=== PATIENT | female | born 2000 ===

== ENCOUNTER 2018-01-20 23:43 | Inpatient (IN) | payer MEDICAID, OTHER ==
[2018-01-20 23:51] VITALS: BMI 21.2
--- NOTE | 2018-01-21 01:54 | ED PDOC ---
HPI: Psych/Substance Abuse Time Seen by Provider: 01/21/18 01:16 Chief Complaint (Nursing): Shortness Of Breath Chief Complaint (Provider): Anxiety History Per: Patient History/Exam Limitations: no limitations Current Symptoms Are (Timing): Still Present Suicide/Self Injury Attempted (Context): None Additional Complaint(s): 17 year old female presents to ED with complaints of anxiety and two panic attacks yesterday and has a past medical history of hypercholesterolemia and asthma. Patient describes her panic attacks as a sudden onset of dizziness, SOB , head spinning sensation, and "tingling" hands. Patient notes that she feels better currently and confirms that she has significant stress in her life recently. Patient admits to suicidal ideation, suicidal plan, and self- mutilation by means of cutting her wrists (last mutilation in November 2017) . Patient states she abuses drugs at parties but denies taking any drugs today. PCP: Non [facility] Past Medical History Reviewed: Historical Data, Nursing Documentation, Vital Signs Vital Signs: Last Vital Signs Temp 98.2 F 01/20/18 23:51 Pulse 81 01/20/18 23:51 Resp 16 01/20/18 23:51 BP 122/77 01/20/18 23:51 Pulse Ox 97 01/20/18 23:51 - Medical History PMH: Asthma, Hypercholesterolemia - Family History Family History: States: Unknown Family Hx - Living Arrangements Living Arrangements: With Family - Social History Alcohol: Social - Home Medications Home Medications: Ambulatory Orders Medication Instructions Recorded No Known Home Med 01/21/18 - Allergies Allergies/Adverse Reactions: Allergies Allergy/AdvReac Type Severity Reaction Status Date / Time No Known Allergies Allergy Verified 01/20/18 23:51 Review of Systems ROS Statement: Except As Marked, All Systems Reviewed And Found Negative Psych: Positive for: Anxiety, Suicidal ideation, Other ((+) panic attacks x2) Physical Exam - Reviewed Nursing Documentation Reviewed: Yes Vital Signs Reviewed: Yes - Physical Exam Appears: Positive for: Non-toxic, No Acute Distress Skin: Positive for: Normal Color, Warm, Dry Neck: Positive for: Normal Cardiovascular/Chest: Positive for: Regular Rate, Rhythm. Negative for: Murmur Respiratory: Negative for: Respiratory Distress Extremity: Positive for: Normal ROM. Negative for: Deformity Neurologic/Psych: Positive for: Alert, Oriented, Mood/Affect (withdrawn, depressed affect). Negative for: Motor/Sensory Deficits - Laboratory Results Result Diagrams: 01/21/18 02:11 01/21/18 02:11 - ECG O2 Sat by Pulse Oximetry: 97 (RA) Pulse Ox Interpretation: Normal Medical Decision Making Medical Decision Makin Initial impression: 17 year old female with no significant past medical history presenting with anxiety and suicidal ideation Initial plan: Patient will need medical clearance for a crisis evaluation. Patient to be placed on a 1:1. * Acetaminophen level * EtOH serum * Labs * UDrug screen * Salicylate level * Crisis eval * 1:1 OBS * UA 0245 Labs reviewed: no clinically significant abnormalities Patient has been medically cleared and subsequently evaluated by crisis. Patient will be admitted for adjustment disorder with depressed mood as per Dr. Glover (INPATIENT PSYCH). Scribe Attestation: Documented by Madhuri Perez acting as a scribe for Janes Elizalde MD. Scribe Attestation: All medical record entries made by the Scribe were at my direction and personally dictated by me. I have reviewed the chart and agree that the record accurately reflects my personal performance of the history, physical exam, medical decision making, and the department course for this patient. I have also personally directed, reviewed, and agree with the discharge instructions and disposition. Disposition - Clinical Impression Clinical Impression: Adjustment disorder with depressed mood - Patient ED Disposition Is Patient to be Admitted: Yes - Disposition Disposition Time: 02:35 Condition: FAIR - Pt Status Changed To: Hospital Disposition Of: Inpatient (INPATIENT PSYCH) - Admit Certification Admit to Inpatient:: After my assessment, the patient will require hospitalization for at least two midnights. This is because of the severity of symptoms shown, intensity of services needed, and/or the medical risk in this patient being treated as an outpatient.
[2018-01-21 02:21] LABS: BASO # 0.1 K/uL (0.0-0.2); BASO % 0.8 % (0.0-2.0); EOS # 0.4 K/uL (0.0-0.7); EOS % 4.9 % (0.0-4.0); HEMOGLOBIN 13.4 g/dL (12.0-16.0); LYMPH # 1.8 K/uL (1.0-4.3); LYMPH % 22.4 % (20.0-40.0); MEAN CELL VOLUME 88.5 fl (81.0-99.0); MEAN CORPUSCULAR HEMOGLOBIN 29.2 pg (27.0-31.0); MEAN PLATELET VOLUME 8.7 fl (7.2-11.7); MONO # 0.6 K/uL (0.0-0.8); NEUT % 63.9 % (50.0-75.0); NRBC % 0.1 % (0.0-0.0); RBC 4.59 Mil/uL (3.80-5.20); RED CELL DISTRIBUTION WIDTH 14.5 % (11.5-14.5); WHITE BLOOD COUNT 7.9 K/uL (4.8-10.8)
[2018-01-21 02:28] LABS: BLOOD UREA NITROGEN 11 mg/dl (7-17); CALCIUM 9.4 mg/dL (8.4-10.2); GFR AFRICAN-AMERICAN > 60; GFR NON-AFRICAN AMERICAN > 60
[2018-01-21 02:32] LABS: ACETAMINOPHEN < 10.0 ug/ml (10.0-30.0); SALICYLATE < 1.0 mg/dl
[2018-01-21 03:35] LABS: SQUAMOUS EPITHIAL < 1 /hpf (0-5); URINE BILIRUBIN NEGATIVE (NEGATIVE); URINE BLOOD NEGATIVE (NEGATIVE); URINE CLARITY CLEAR (Clear); URINE COLOR STRAW (YELLOW); URINE GLUCOSE (UA) NEG (Normal); URINE LEUKOCYTE ESTERASE NEG Leu/uL (Negative); URINE PROTEIN NEGATIVE (NEGATIVE); URINE UROBILINOGEN 0.2-1.0 mg/dL (0.2-1.0)
[2018-01-21 03:55] LABS: BARBITURATES, UR NEGATIVE (NEGATIVE); BENZODIAZEPINES, UR NEGATIVE (NEGATIVE); OPIATES, UR NEGATIVE (NEGATIVE); PHENCYCLIDINE, UR NEGATIVE (NEGATIVE)
[2018-01-21] MEDS ORDERED: Alum-Mag Hydrox-Simethicone Susp (30 mL) PO PRN (05:22)
[2018-01-21] MEDS ORDERED: DiphenhydrAMINE 50 mg/ml Inj IM PRN (05:22)
[2018-01-21] MEDS ORDERED: Magnesium Hydroxide Susp 30 ml UD PO PRN (05:22)
[2018-01-21 06:03] VITALS: O2SAT 97
[2018-01-21 06:06] LABS: T4 7.36 ug/dl (5.5-11.0)
--- NOTE | 2018-01-21 06:25 | PCM.BM ---
<RobertMelissa Chaney - Last Filed: 01/21/18 06:22> Treatment Plan Problems - Problems identified on initial assessmt Anxiety Date Initiated: 01/21/18 Time Initiated: 06:23 Assessment reference: NA Status: Active Panic Attacks Date Initiated: 01/21/18 Time Initiated: 06:24 Assessment reference: NA Status: Active Treatment assets and liabiliti Patient Assests: adapts well, cooperative, physically healthy, good support system, negotiates basic needs, cognitively intact Patient Liabilities: financial problems - Milieu Protocol Maintain good personal hygiene: daily Encourage regular showers, daily Remind patient to perform daily oral care, daily Assist patient to perform ADL's Conduct patient checks and document Observation sheet: Q15 minutes Maintain personal safety: every shift Educate patient to report safety concerns to staff, every shift Monitor environment for contraband/sharps Medication safety: Monitor for expected outcome, potential side effects: every shift, Assess barriers to learning: every shift, Assess readiness for medication education: every shift <Lizzie Glover - Last Filed: 01/25/18 13:00> - Diagnosis (1) Depressed Status: Acute Interventions: psychotherapy, pharmacotherapy 01/25/18 13:00 <Fadia Elliott - Last Filed: 01/25/18 13:16> Treatment assets and liabiliti Patient Assests: adapts well, cooperative, motivated, ADL independent, physically healthy, good support system, negotiates basic needs, cognitively intact Family Contact Family involvement: Family/SO is involved Family contact: Patient agrees to contact, Family has been contacted by patient , Telephone contact initiated by staff Family contact name: Petr)([phone]) Family contacted how many times per week?: 2 - Goals for Treatment Patient goals for treatment: Patient to continue stabilization on 3NP through medication management and group/supportive therapy to address sxs of depression/ anxiety and eliminate SI. Patient to be encouraged to attend groups regularly to promote self-awareness, compliance and improve insight, coping skills and self-esteem. Patient to be provided with referral for appropriate level of aftercare to reduce risk of future hospitalizations and ensure safety in the community. Discharge/Continuing Care - Education Needs Education Needs: Family Medication, Family Coping Skills, Family Community resources, Family Aftercare Safety Plan, Patient Medication, Patient Coping Skills, Patient Community resources, Patient Aftercare Safety Plan - Discharge Discharge Criteria: Tolerates medication w/o severe side effects, Free of Suicidal thoughts, Normal sleep pattern, Ability to care for self, Reduction of target symptoms Discharge to:: Home, With Family, Other (Outpatient Mental Health ) - Treatment Team Participation Patient/Family/SO Statement: 01/25/18 13:15 Patient attended tx team on the morning of 01/24 and was able to engage in discussion regarding progress on 3NP and tx goals. Pt. reported having received significant support from family and friends since admission and feeling loved and supported by the people visiting on unit. Pt. reported improvement in sxs of depression and anxiety since admission. Pt. denied SI/HI or urges to self- injure. Pt. reported poor sleep from Wednesday to Wednesday but denied nightmares or flashbacks. Pt reported improvement in appetite. Medication changes discussed at length (increase in antidepressant). Pt. agreeable. Discussed with Family/SO: Yes Was Patient/Family/SO present at Treatment Team Meeting: Yes
[2018-01-21] MEDS ORDERED: Albuterol HFA 90 mcg/actuation (8 g) INH PRN (09:24)
--- NOTE | 2018-01-21 12:19 | CP.PCM.CON ---
History of Present Illness - History of Present Illness History of Present Illness: CC: Depression This is a 17 yo female with pmh of asthma and familial hypercholesterolemia presenting to inpatient [facility] with panic attach, suicidal ideation and suicidal plan. Also has history of self mutiliation/wrist cutting. Patient denies any current medical issues. Only current medication she takes at home is PRN Ventolin inhaler. Denies cp, sob, weakness, recent illness, f/v/n/v/d. Review of Systems - Review of Systems Review of Systems: A 12 point review of systems was conducted and found to be negative other than what was mentioned in the HPI. Past Patient History - Infectious Disease Hx of Infectious Diseases: None - Past Medical History & Family History Past Medical History?: Yes Pertinent Family History: Familial hypercholesterolemia - Past Social History Smoking Status: Never Smoked Alcohol: Social Drugs: Denies (no recent usage) - CARDIAC Hx Cardiac Disorders: No Hx Hypertension: No - PULMONARY Hx Tuberculosis: No - NEUROLOGICAL HX Cerebrovascular Accident: No Hx Seizures: No - HEMATOLOGICAL/ONCOLOGICAL Hx Cancer: No Hx Human Immunodeficiency Virus (HIV): No - GENITOURINARY/GYNECOLOGICAL Hx Sexually Transmitted Disorders: No - PSYCHIATRIC Hx Anxiety: Yes Hx Substance Use: No - SURGICAL HISTORY Hx Tonsillectomy: Yes - ANESTHESIA Hx Anesthesia: No Meds Allergies/Adverse Reactions: Allergies Allergy/AdvReac Type Severity Reaction Status Date / Time No Known Allergies Allergy Verified 01/20/18 23:51 - Medications Medications: Current Medications Acetaminophen (Tylenol 325mg Tab) 650 mg PO Q4 PRN PRN Reason: pain level 4-7 Al Hydrox/Mg Hydrox/Simethicone (Maalox Plus 30 Ml) 30 ml PO Q4 PRN PRN Reason: Dyspepsia Diphenhydramine HCl (Benadryl) 50 mg IM Q6 PRN PRN Reason: Extrapyramidal S/S Unable PO Diphenhydramine HCl (Benadryl) 50 mg PO Q6 PRN PRN Reason: Extrapyramidal Symptoms Diphenhydramine HCl (Benadryl) 50 mg PO HS PRN PRN Reason: Sleep Haloperidol (Haldol) 5 mg PO Q4 PRN PRN Reason: Agitation Haloperidol Lactate (Haldol) 5 mg IM Q4 PRN PRN Reason: Agitation, Unable to Take PO Lorazepam (Ativan) 2 mg IM Q4 PRN PRN Reason: Anxiety/Agitation,Unable PO Lorazepam (Ativan) 2 mg PO Q4 PRN PRN Reason: Anxiety/Agitation Magnesium Hydroxide (Milk Of Magnesia) 30 ml PO HS PRN PRN Reason: Constipation Physical Exam - Additional Findings Additional findings: Physical exam: Constitutional- cooperative, awake, alert Head- NCAT, PERRL Eye- PERRL, EOMI ENT- normal exam, MMM. Neck- normal inspection, supple, no JVD Respiratory- CTAB, no wheezes rales rhonchi Cardiovascular- RRR, +S1, +S2 no MRG GI/Abdominal- normal bowel sounds, soft, no mass, no hsm Skin- warm, dry Extremities Exam- normal capillary refill, normal inspection Neurological Exam- alert, awake, oriented Psych- normal mood, normal affect Results - Vital Signs Recent Vital Signs: Last Vital Signs Temp 97.7 F 01/21/18 09:00 Pulse 71 01/21/18 09:00 Resp 18 01/21/18 09:00 BP 111/75 01/21/18 09:00 Pulse Ox 97 01/21/18 06:03 - Labs Result Diagrams: 01/21/18 02:11 01/21/18 02:11 Labs: Laboratory Results - last 24 hr 01/21/18 01/21/18 01/21/18 02:11 02:11 02:11 WBC 7.9 RBC 4.59 Hgb 13.4 Hct 40.6 MCV 88.5 MCH 29.2 MCHC 33.0 RDW 14.5 Plt Count 300 MPV 8.7 Neut % (Auto) 63.9 Lymph % (Auto) 22.4 [place] % (Auto) 8.0 Eos % (Auto) 4.9 H Baso % (Auto) 0.8 Neut # (Auto) 5.0 Lymph # (Auto) 1.8 [place] # (Auto) 0.6 Eos # (Auto) 0.4 Baso # (Auto) 0.1 Sodium 143 Potassium 3.7 Chloride 106 Carbon Dioxide 23 Anion Gap 18 BUN 11 Creatinine 0.5 L Est GFR ( Amer) > 60 Est GFR (Non-Af Amer) > 60 Random Glucose 103 Calcium 9.4 Triglycerides Cholesterol LDL Cholesterol Direct HDL Cholesterol Thyroxine (T4) TSH 3rd Generation Urine Color Urine Clarity Urine pH Ur Specific [place] Urine Protein Urine Glucose (UA) Urine Ketones Urine Blood Urine Nitrate Urine Bilirubin Urine Urobilinogen Ur Leukocyte Esterase Urine RBC (Auto) Urine Microscopic WBC Ur Squamous Epith Cells Salicylates < 1.0 Urine Opiates Screen Urine Methadone Screen Acetaminophen < 10.0 L Ur Barbiturates Screen Ur Phencyclidine Scrn Ur Amphetamines Screen U Benzodiazepines Scrn U Oth Cocaine Metabols U Cannabinoids Screen Alcohol, Quantitative < 10 01/21/18 01/21/18 01/21/18 03:20 03:20 05:36 WBC RBC Hgb Hct MCV MCH MCHC RDW Plt Count MPV Neut % (Auto) Lymph % (Auto) [place] % (Auto) Eos % (Auto) Baso % (Auto) Neut # (Auto) Lymph # (Auto) [place] # (Auto) Eos # (Auto) Baso # (Auto) Sodium Potassium Chloride Carbon Dioxide Anion Gap BUN Creatinine Est GFR ( Amer) Est GFR (Non-Af Amer) Random Glucose Calcium Triglycerides 137 Cholesterol 197 LDL Cholesterol Direct 104 HDL Cholesterol 48 Thyroxine (T4) 7.36 TSH 3rd Generation 2.49 Urine Color Straw Urine Clarity Clear Urine pH 6.0 Ur Specific [place] 1.009 Urine Protein Negative Urine Glucose (UA) Neg Urine Ketones Negative Urine Blood Negative Urine Nitrate Negative Urine Bilirubin Negative Urine Urobilinogen 0.2-1.0 Ur Leukocyte Esterase Neg Urine RBC (Auto) < 1 Urine Microscopic WBC < 1 Ur Squamous Epith Cells < 1 Salicylates Urine Opiates Screen Negative Urine Methadone Screen Negative Acetaminophen Ur Barbiturates Screen Negative Ur Phencyclidine Scrn Negative Ur Amphetamines Screen Negative U Benzodiazepines Scrn Negative U Oth Cocaine Metabols Negative U Cannabinoids Screen Negative Alcohol, Quantitative Assessment & Plan - Assessment and Plan (Free Text) Plan: This is a 17 yo female with pmh of asthma and familial hypercholesterolemia presenting to inpatient [facility] with panic attach, suicidal ideation and suicidal plan. 1) Mild intermittent asthma - Ventolin inhaler PRN - chronic 2) Familial hypercholesterolemia - No need for medical intervention at this time based on lipid profile results - outpatient follow up 3) Suicidal ideation - management as per psych 4) Anxiety - management as per psych
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
--- NOTE | 2018-01-22 08:50 | PCM.PYCHPN ---
Psychiatric Progress Note - Psychiatric Progress Note Patient seen today, length of contact: pt is seen and evaluated Patient Chief Complaint: pt has remained very depressed and has been obsessed with being overweight and has been looking in mirror and has body image distortion.denies purging and vomiting . Medication Change: Yes (increase) Medical Record Reviewed: Yes Mental Status Examination - Cognitive Function Orientation: Person, Place, Situation Memory: Intact Attention: Poor Concentration: Poor Association: WNL Fund of Knowledge: WNL - Mood Mood: Depressed, Anxious - Affect Affect: Constricted, Depressed - Formal Thought Process Formal Thought Process: Circumstantial - Suicidal Ideation Suicidal Ideation: No - Homicidal Ideation Homicidal Ideation: No Goal/Treatment Plan - Goal/Treatment Plan Progress Toward Problem(s) and Goals/Treatment Plan: will increase prozac to 20 mg daily to stabilize the mood and Obsessions . d/c plans as per dr gibson
[2018-01-22] MEDS ORDERED: Benzocaine/Menthol (Cepacol) Lozenge PO PRN (18:06)
[2018-01-24 09:11] VITALS: RESP 18
--- NOTE | 2018-01-24 16:29 | PCM.PYCHPN ---
Psychiatric Progress Note - Psychiatric Progress Note Patient seen today, length of contact: pt is seen and evaluated Patient Chief Complaint: I feel better because I had a lot of visitors Problems Identified/Issues Discussed: pt evaluated with treatment team, reported better mood relates that to multiple visits she had over the weekend which makes her feel better about her social support also responding well to medications with better sleep and reduction in the flash backs and night rosario,denied any current purging episodes and reported normal food intake no side effects reported denied any current suicidal or homicidal ideation Medical Problems: no history of previous hospitalization or treatment DSM 5 Symptoms Update: depression post traumatic stress disorder cannabis use anorexia nervosa Medication Change: No Medical Record Reviewed: Yes Mental Status Examination - Cognitive Function Orientation: Person, Place, Situation Memory: Intact Attention: Poor Concentration: Poor Association: WNL Fund of Knowledge: WNL - Mood Mood: Depressed, Anxious - Affect Affect: Constricted, Depressed - Formal Thought Process Formal Thought Process: Circumstantial - Suicidal Ideation Suicidal Ideation: No - Homicidal Ideation Homicidal Ideation: No Goal/Treatment Plan - Goal/Treatment Plan Need for Continued Stay: Severe depression anxiety, Discharge may exacerbated symptoms Progress Toward Problem(s) and Goals/Treatment Plan: increase prozac 20mg daily trazodone 50mg qhs prn for insomnia CBT group and supportive therapy
--- NOTE | 2018-01-25 13:26 | PCM.PYCHPN ---
Psychiatric Progress Note - Psychiatric Progress Note Patient seen today, length of contact: pt is seen and evaluated Patient Chief Complaint: The flash backs are less and I sleep better Problems Identified/Issues Discussed: pt evaluated , continues to have depressed mood and constricted affect, pt reported improved sleep ,less flashbacks, and did not experience night rosario last evening, no reported side effects of prozac, and no current thought s of self harm, pt continues to have distorted body image believing she is overweight with distorted body image , denied any current episodes of purging, discussed importance of therapy on discharge no side effects of medications reported, pt denied any current suicidal or homicidal ideation Medical Problems: no history of previous hospitalization or treatment DSM 5 Symptoms Update: post traumatic stress disorder anorexia nervosa major depression Medication Change: No Medical Record Reviewed: Yes Mental Status Examination - Cognitive Function Orientation: Person, Place, Situation Memory: Intact Attention: WNL Association: WN Fund of Knowledge: [facility] Decription of patient's judgement and insights: partial insight ,fair judgment - Mood Mood: Depressed, Anxious - Affect Affect: Constricted, Depressed - Speech Speech: Soft - Formal Thought Process Formal Thought Process: Circumstantial Psychotic Thoughts and Behaviors: pt denied any current perceptual disturbances, non elicited - Suicidal Ideation Suicidal Ideation: No - Homicidal Ideation Homicidal Ideation: No Goal/Treatment Plan - Goal/Treatment Plan Need for Continued Stay: Severe depression anxiety, Discharge may exacerbated symptoms Progress Toward Problem(s) and Goals/Treatment Plan: prozac 20mg daily trazodone 50mg qhs prn for insomnia CBT group and supportive therapy
--- NOTE | 2018-01-26 15:17 | PCM.PYCHPN ---
Psychiatric Progress Note - Psychiatric Progress Note Patient seen today, length of contact: pt is seen and evaluated Patient Chief Complaint: I feel better Problems Identified/Issues Discussed: pt evaluated , reported better mood , presenting with brighter affect , pt reported improved sleep , no current flashbacks, or night rosario l, no reported side effects of prozac, and no current thought s of self harm, pt continues to have distorted body image believing she is overweight with distorted body image , denied any current episodes of purging, discussed importance of therapy on discharge , pt denied any current suicidal or homicidal ideation Medical Problems: no history of previous hospitalization or treatment DSM 5 Symptoms Update: PTSD ANOREXIA NERVOSA DEPRESSION Medication Change: No Medical Record Reviewed: Yes Mental Status Examination - Cognitive Function Orientation: Person, Place, Situation Memory: Intact Attention: WNL Association: WNL Fund of Knowledge: [facility] Decription of patient's judgement and insights: partial insight ,fair judgment - Mood Mood: Depressed, Anxious - Affect Affect: Constricted, Depressed - Speech Speech: Soft - Formal Thought Process Formal Thought Process: Circumstantial Psychotic Thoughts and Behaviors: pt denied any current perceptual disturbances, non elicited - Suicidal Ideation Suicidal Ideation: No - Homicidal Ideation Homicidal Ideation: No Goal/Treatment Plan - Goal/Treatment Plan Need for Continued Stay: Severe depression anxiety, Discharge may exacerbated symptoms Progress Toward Problem(s) and Goals/Treatment Plan: prozac 20mg daily trazodone 50mg qhs prn for insomnia CBT group and supportive therapy
[2018-01-27 08:53] VITALS: BP 115/68; PULSE 84; TEMP 97.9
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
== END 2018-01-27 11:54 | disposition home or self-care (01) | DRG 426 ==
LOC: H.ER 23:43 → H.ERHOLD 01-21 02:44 → H.PSYCH 01-21 05:17
PROVIDERS: ADMIT Psychiatry & Neurology Psychiatry; ATTEND Psychiatry & Neurology Psychiatry
PROC: GZ3ZZZZ Medication Management (ICD-10-PCS; principal; 2018-01-21)
PROC: GZHZZZZ Group Psychotherapy (ICD-10-PCS; 2018-01-21)
PROC: GZ56ZZZ Individual Psychotherapy, Supportive (ICD-10-PCS; 2018-01-21)
DX: F43.21 Adjustment disorder with depressed mood (principal); F50.00 Anorexia nervosa, unspecified; F41.9 Anxiety disorder, unspecified; F41.0 Panic disorder [episodic paroxysmal anxiety]; R45.851 Suicidal ideations; J45.20 Mild intermittent asthma, uncomplicated; E78.01 Familial hypercholesterolemia; F43.10 Post-traumatic stress disorder, unspecified; F12.90 Cannabis use, unspecified, uncomplicated; G47.00 Insomnia, unspecified; Z83.42 Family history of familial hypercholesterolemia; E66.3 Overweight